=== PATIENT | male | born 1990 | race Two or more races ===

== ENCOUNTER 2025-02-08 22:35 | Emergency (ER) | payer OTHER ==
[~2025-02-08] VITALS: Ht 182.9 cm; Wt 54.4 kg
[2025-02-09 00:09] VITALS: BP 114/75; TEMP 98.2; O2SAT 96
== END 2025-02-09 00:25 ==
LOC: ER 22:37
DX: Z00.00 Encounter for general adult medical examination without abnormal findings (principal); F19.11 Other psychoactive substance abuse, in remission